=== PATIENT | female | born 1975 | race Caucasian/White ===

== ENCOUNTER 2017-06-01 09:05 | Emergency (ER) | payer OTHER ==
[2017-06-01 09:15] VITALS: TEMP 98.2; BMI 29.7
--- NOTE | 2017-06-01 09:21 | PDOC ---
History of Present Illness - General Chief Complaint: Headache Stated Complaint: HEADACHE, VOMITNG Time Seen by Provider: 06/01/17 09:21 History Source: Patient - History of Present Illness Initial Comments: 06/01/17 10:12 CC: 5 day h/o headache Patient is a 42 y.o. female with a PMH of Asthma and Hypothyroidism who presents to our facility c/o 5 day h/o "throbbing, constant" headache which some associated photophobia as well as h/o lathmaker/awakening (non-bloody, yellowish) vomiting. Patient states that she was watching television when the headache came on gradually and increased in severity over the last 5 days prompting her visit to the ED. Patient notes intermittent sensation of vertigo that is non-positional and not associated with chest pain or shortness of breath. Patient notes she has been tolerating oral intake, however has had a decreased appetite due to her pain. PMD: Dr. Mc Surgical: None Social: denies, nicotine, social 1-2 alcoholic drinks weekly, denies recreational drugs NKDA Past History - Past Medical History Allergies/Adverse Reactions: Allergies Allergy/AdvReac Type Severity Reaction Status Date / Time No Known Allergies Allergy Verified 06/01/17 09:14 Home Medications: Ambulatory Orders Levothyroxine [Synthroid -] 250 mcg PO ASDIR 05/06/13 Asthma: Yes Cancer: No Cardiac Disorders: No Diabetes: No HTN: No Seizures: No Thyroid Disease: Yes (hypothyroidism) - Surgical History Abdominal Surgery: Yes (HERNIA.) Appendectomy: Yes - Immunization History Immunization Up to Date: Yes - Suicide/Smoking/Psychosocial Hx Smoking Status: No Smoking History: Never smoked Have you smoked in the past 12 months: No Number of Cigarettes Smoked Daily: 1 If you are a former smoker, when did you quit?: 2008 Hx Alcohol Use: Yes (SOCIAL.) Drug/Substance Use Hx: No Substance Use Type: Alcohol Hx Substance Use Treatment: No Review of Systems - Review of Systems Constitutional: No: Chills, Fever HEENTM: Yes: Other (Photophobia) Respiratory: No: Cough, Shortness of Breath Cardiac (ROS): No: Chest Pain ABD/GI: No: Constipated, Diarrhea : No: Burning, Dysuria Neurological: Yes: Headache, Dizziness Psychiatric: No: Anxiety, Depression All Other Systems: Reviewed and Negative *Physical Exam - Vital Signs Last Vital Signs Temp Pulse Resp BP Pulse Ox 98.2 F 88 18 145/93 98 06/01/17 09:13 06/01/17 09:13 06/01/17 09:13 06/01/17 09:13 06/01/17 09:13 - Physical Exam General Appearance: Yes: Nourished, Appropriately Dressed HEENT: positive: EOMI, SUSANA Neck: positive: Trachea midline, Supple Respiratory/Chest: positive: Lungs Clear, Normal Breath Sounds Cardiovascular: positive: Regular Rhythm, Regular Rate, S1, S2 Gastrointestinal/Abdominal: positive: Normal Bowel Sounds, Soft Integumentary: positive: Normal Color, Dry, Warm Neurologic: positive: automatic pinsetter mechanic II-XII NML intact, Fully Oriented, Alert, Finger to Nose, Other (Non-analtalgic gait) ED Treatment Course - LABORATORY CBC & Chemistry Diagram: 06/01/17 10:41 06/01/17 10:41 Medical Decision Making - Medical Decision Making 06/01/17 13:33 Patient is a 42 y.o. female who presents with 5 day h/o headache. Initial DDx is for migraine vs. intracranial mass vs. pituitary adenoma (less likely). PLAN: 1. CT Scan 2. 1 L IV NS 3. CBC, CMP 06/01/17 19:58 CT head negative for acute intracranial process. Patient symptomatically improved with Compazine --> Decadron. Ambulatory, improved and tolerating PO intake. Discharged home with neurology referral. *DC/Admit/Observation/Transfer Diagnosis at time of Disposition: Headache - Discharge Dispostion Disposition: HOME Condition at time of disposition: Good Admit: No - Referrals Referrals: Richi Renner MD [Primary Care Provider] - Lyle Thompson MD [Staff Physician] - - Patient Instructions Additional Instructions: Please make an appointment with Dr. Thompson, neurology, for evaluation of your headaches. Please return to the ED should your symptoms worsen.
--- NOTE | 2017-06-01 09:25 | PDOC ---
Attending Attestation - HPI HPI: 06/01/17 10:38 42yr old female, with significant past medical history of asthma and hypothyroidism, who presents to the emergency room today complaining of 5 days of a progressively worsening, throbbing and tightening headache. She explains that she was watching TV when the headache started 5 days ago. She took tylenol and motrin with mild relief. She has not noticed any exacerbating or alleviating factors, but endorses photophobia. She reports intermittent episodes of dizziness, where she feels like the room is spinning. She notes that she has been experiencing nausea and 2-3 episodes of vomiting in the morning. The vomit is nonbloody, nonbilious, and usually just the food she ate that morning. Denies visual changes Denies recent illness. Denies fever, chills, nausea, vomiting. - Physicial Exam PE: 06/01/17 10:38 Constitutional: Awake, alert, oriented. Appears uncomfortable. Head: Normocephalic. Atraumatic Eyes: PERRL. EOMI. Conjunctivae are not pale. ENT: Mucous membranes are moist and intact. Posterior pharynx without exudates or erythema. Uvula midline. Neck: Supple. Full ROM. No lymphadenopathy. Cardiovascular: + tachycardic. Regular rhythm. S1, S2 regular. Distal pulses are 2+ and symmetric. Pulmonary/Chest: No evidence of respiratory distress. Clear to auscultation bilaterally No wheezing, rales or rhonchi. Abdominal: Soft and non-distended. There is no tenderness. No rebound, guarding or rigidity. No organomegaly. No palpable masses. Good bowel sounds. Back: No CVA tenderness. Musculoskeletal: No edema. No cyanosis. No clubbing. Full range of motion in all extremities. Nocalf tenderness. Radial/pedal pulses are intact and 2+ bilaterally Skin: Skin is warm and dry. No petechiae. No purpura. Neurological: Alert and oriented to person, place, and time. Cranial nerves II -XII are grossly intact. Normal speech. Strength is grossly symmetric. No sensory deficits. Psychiatric: Good eye contact. Normal interaction, affect and behavior. <Holley Vitale - Last Filed: 06/01/17 10:38> - Resident Resident Name: Nicole Munoz - ED Attending Attestation I have performed the following: I have examined & evaluated the patient, The case was reviewed & discussed with the resident, I agree w/resident's findings & plan, Exceptions are as noted - Medical Decision Making 06/01/17 09:24 I, Dr. Carolina Gotti, DO, attest that this document has been prepared under my direction and personally reviewed by me in its entirety. I further attest, that it accurately reflects all work, treatment, procedures and medical decision -making performed by me. 06/01/17 10:33 a/p: 42yo female with tension headache -no meningeal signs, no infectious process -no f/c -neck supple -neuro intact -will check head ct given new onset of headaches, not thunderclap, had gradual onset, low suspicion for SAH -labs given 5 days of n/v -ua -ucg -ivf hydration, headache and nausea control -reassess 06/01/17 11:[address] negative 06/01/17 11:28 pt feeling better, BRYANT not 100% resolved. Will add toradol. Pt resting comfortably. No dizziness. No nausea. 06/01/17 13:00 pt denies dysuria. no bryant. stable for d/c to home. recommend neuro follow up <Carolina Gotti - Last Filed: 06/01/17 13:00>
[2017-06-01] MEDS ORDERED: METOCLOPRAMIDE HCL 10 MG TABLET (FP) PO ONE (09:43)
[2017-06-01] MEDS ORDERED: SODIUM CHLORIDE 0.9% 1000 ML INFUS.BAG IV ONE (09:45)
[2017-06-01] MEDS ORDERED: PROCHLORPERAZINE INJECTION 10 MG/2 ML VIAL IVPB ONE (09:52)
[2017-06-01] MEDS ORDERED: KETOROLAC TROMETHAMINE 30 MG/1 ML VIAL IVPUSH ONE ×2 (09:53→11:29)
[2017-06-01] MEDS ORDERED: DEXAMETHASONE SOD PHOSPHATE 10 MG/1 ML VIAL IVPUSH ONE (09:58)
[2017-06-01] MEDS ORDERED: DEXAMETHASONE SOD PHOSPHATE 10 MG/1 ML VIAL ONE (10:06)
[2017-06-01] MEDS ORDERED: METOCLOPRAMIDE HCL INJECTION 10 MG/2 ML VIAL IVPUSH ONE (10:07)
[2017-06-01] MEDS ORDERED: ACETAMINOPHEN 325 MG TABLET (FP) PO ONE (10:08)
[2017-06-01] MEDS ORDERED: MAG HYDROX/AL HYDROX/SIMETH 30 ML UNIT-DOSE CUP PO ONE (10:08)
[2017-06-01] MEDS ORDERED: MAG HYDROX/AL HYDROX/SIMETH 30 ML UNIT-DOSE CUP ONE (10:36)
[2017-06-01] MEDS ORDERED: ACETAMINOPHEN 325 MG TABLET (FP) ONE (10:36)
[2017-06-01 11:20] LABS: URINE APPEARANCE CLOUDY; URINE BILIRUBIN NEGATIVE (NEGATIVE); URINE BLOOD NEGATIVE (NEGATIVE); URINE COLOR DKYELLOW; URINE GLUCOSE (UA) NEGATIVE (NEGATIVE); URINE KETONE 1+ (NEGATIVE); URINE NITRITE NEGATIVE (NEGATIVE); URINE UROBILINOGEN NEGATIVE mg/dL (0.2-1.0)
[2017-06-01 11:23] LABS: BASOPHIL 0.3 % (0-2.0); EOSINOPHIL 0.4 % (0-4.5); MCH 31.8 pg (25.7-33.7); MCHC 33.4 g/dl (32.0-36.0); MEAN CELL VOLUME 95.1 fl (80-96); NEUTROPHILS 64.2 % (42.8-82.8); PLATELET COUNT 238 K/MM3 (134-434); RDW 13.8 % (11.6-15.6); WHITE BLOOD COUNT 5.6 K/mm3 (4.0-10.0)
[2017-06-01] MEDS ORDERED: KETOROLAC TROMETHAMINE 30 MG/1 ML VIAL ONE (11:31)
[2017-06-01 11:32] LABS: URINE PROTEIN 1+ (NEGATIVE)
[2017-06-01 11:34] LABS: URINE BACTERIA FEW /hpf (NONE SEEN); URINE MUCUS MANY; URINE RBC 2 /hpf (0-3); URINE WBC 10 /hpf (3-5)
[2017-06-01 11:38] LABS: ALBUMIN 3.3 g/dl (3.4-5.0); ALK PHOS 58 U/L (45-117); ANION GAP 7 (8-16); BILIRUBIN,TOTAL 0.3 mg/dL (0.2-1.0); CALCIUM 8.7 mg/dL (8.5-10.1); CO2 25 mmol/L (21-32); CREATININE 0.8 mg/dL (0.55-1.02); GLUCOSE,RANDOM 81 mg/dL (74-106); MAGNESIUM 2.5 mg/dL (1.8-2.4); SGOT/AST 11 U/L (15-37); SGPT/ALT 16 U/L (12-78); TOT PROT 6.7 g/dl (6.4-8.2)
[2017-06-01] MEDS ORDERED: oxyCODONE HCL 5 MG TABLET ONE (13:12)
[2017-06-01 13:13] VITALS: BP 108/74; PULSE 64
[2017-06-01 13:25] LABS: URINE LEUK ESTERASE Negative (NEGATIVE)
== END 2017-06-01 13:18 | disposition home or self-care (01) ==
LOC: JER 09:05 → SUPCPDRO 09:05 → JER 13:18
PROC: 3E0337Z Introduction of Electrolytic and Water Balance Substance into Peripheral Vein, Percutaneous Approach (ICD-10-PCS; principal; 2017-06-01)
PROC: 3E033GC Introduction of Other Therapeutic Substance into Peripheral Vein, Percutaneous Approach (ICD-10-PCS; 2017-06-01)
PROC: 3E033NZ Introduction of Analgesics, Hypnotics, Sedatives into Peripheral Vein, Percutaneous Approach (ICD-10-PCS; 2017-06-01)
DX: R51 Headache (principal); J45.909 Unspecified asthma, uncomplicated; E03.9 Hypothyroidism, unspecified; Z87.891 Personal history of nicotine dependence
CPT/HCPCS: 36415; 70450-TC; 80053; 81003; 81015; 83735; 84703; 85025; 96374; 96375; 99284-25

== ENCOUNTER 2017-09-03 17:43 | Emergency (ER) | payer BC, OTHER ==
[2017-09-03 18:12] VITALS: BP 109/71; PULSE 61; TEMP 98.4; BMI 28.3
--- NOTE | 2017-09-03 20:14 | PDOC ---
History of Present Illness - History of Present Illness Initial Comments: 09/03/17 20:57 Patient is a 42 y.o. female with a PMH of Asthma and Hypothyroidism who presents to our facility c/o heavy vaginal bleeding since 08/10/17. Patient states that her menses on 07/16/17 was normal however on 08/10/17 her period began and never stopped she says. She states she has been having heavy clots of blood and tissue and went through 8 pads today. She states she has been taking Motrin for the pain. She denies nausea, vomiting, diarrhea, constipation, headache, dizziness. She denies chest pain, shortness of breath. She denies dysuria, frequency, urgency, hematuria. PMD: Dr. Mc ObGyn: Dr. Roldan Surgical:Appendectomy, Umbilical hernia removal. Social: denies, nicotine, social 1-2 alcoholic drinks weekly, denies recreational drugs NKDA <Yanni Nunez - Last Filed: 09/03/17 21:07> <Latonia Brandon - Last Filed: 09/03/17 22:13> - General Chief Complaint: Vaginal Bleeding Stated Complaint: VAGINAL BLEEDING Time Seen by Provider: 09/03/17 19:56 Past History <Yanni Nunez - Last Filed: 09/03/17 21:07> - Past Medical History Asthma: Yes Cancer: No Cardiac Disorders: No Diabetes: No HTN: No Seizures: No Thyroid Disease: Yes (hypothyroidism) - Surgical History Abdominal Surgery: Yes (HERNIA.) Appendectomy: Yes - Immunization History Immunization Up to Date: Yes - Suicide/Smoking/Psychosocial Hx Smoking Status: No Smoking History: Current some day smoker Have you smoked in the past 12 months: Yes Number of Cigarettes Smoked Daily: 1 If you are a former smoker, when did you quit?: 2008 Information on smoking cessation initiated: No Hx Alcohol Use: Yes (SOCIAL.) Drug/Substance Use Hx: No Substance Use Type: Alcohol Hx Substance Use Treatment: No <Latonia Brandon - Last Filed: 09/03/17 22:13> - Past Medical History Allergies/Adverse Reactions: Allergies Allergy/AdvReac Type Severity Reaction Status Date / Time No Known Allergies Allergy Verified 09/03/17 18:09 Home Medications: Ambulatory Orders RX: Levothyroxine [Synthroid -] 250 mcg PO ASDIR 05/06/13 Review of Systems - Review of Systems Comments:: 09/03/17 20:57 ADULT COMPREHENSIVE ROS CONSTITUTIONAL: Absent: fever, chills, diaphoresis, generalized weakness, malaise, loss of appetite HEENT: Absent: rhinorrhea, nasal congestion, throat pain, throat swelling, difficulty swallowing, mouth swelling, ear pain, eye pain, visual Changes CARDIOVASCULAR: Absent: chest pain, syncope, palpitations, irregular heart rate, lightheadedness , peripheral edema RESPIRATORY: Absent: cough, shortness of breath, dyspnea with exertion, orthopnea, wheezing, stridor, hemoptysis GASTROINTESTINAL: Present: LLQ abdominal pain Absent: abdominal distension, nausea, vomiting, diarrhea, constipation, melena , hematochezia GENITOURINARY: Absent: dysuria, frequency, urgency, hesitancy, hematuria, flank pain, genital pain GYNECOLOGICAL: Present: heavy vaginal blood clots w/ tissue. MUSCULOSKELETAL: Absent: myalgia, arthralgia, joint swelling SKIN: Absent: rash, itching, pallor HEMATOLOGIC/IMMUNOLOGIC: Absent: easy bleeding, easy bruising, lymphadenopathy, frequent infections ENDOCRINE: Absent: unexplained weight gain, unexplained weight loss, heat intolerance, cold intolerance NEUROLOGIC: Absent: headache, focal weakness or paresthesias, dizziness, unsteady gait, seizure, mental status changes, bladder or bowel incontinence PSYCHIATRIC: Absent: anxiety, depression, suicidal or homicidal ideation, hallucinations. <Yanni Nunze - Last Filed: 09/03/17 21:07> *Physical Exam - Vital Signs Last Vital Signs Temp Pulse Resp BP Pulse Ox 98.4 F 61 19 109/71 100 09/03/17 18:09 09/03/17 18:09 09/03/17 18:09 09/03/17 18:09 09/03/17 18:09 - Physical Exam Comments: 09/03/17 21:00 GENERAL: Well developed, well nourished. Awake and alert. No acute distress. HEENT: Normocephalic, atraumatic. PERRLA, EOMI. No conjunctival pallor. Sclera are non- icteric. Moist mucous membranes. Oropharynx is clear. NECK: Supple. Full ROM. No JVD. Carotid pulses 2+ and symmetric, without bruits. No thyromegaly. No lymphadenopathy. CARDIOVASCULAR: Regular rate and rhythm. No murmurs, rubs, or gallops. Distal pulses are 2+ and symmetric. PULMONARY: No evidence of respiratory distress. Lungs clear to auscultation bilaterally. No wheezing, rales or rhonchi. ABDOMINAL: Soft, in discomfort. Non-tender. Non-distended. No rebound or guarding. No organomegaly. Normoactive bowel sounds. MUSCULOSKELETAL Normal range of motion at all joints. No bony deformities or tenderness. No CVA tenderness. EXTREMITIES: No cyanosis. No clubbing. No edema. No calf tenderness. SKIN: Warm and dry. Normal capillary refill. No rashes. No jaundice. NEUROLOGICAL: Alert, awake, appropriate. Cranial nerves 2-12 intact. No deficits to light touch and temperature in face, upper extremities and lower extremities. No motor deficits in the in face, upper extremities and lower extremities. Normoreflexic in the upper and lower extremities. Normal speech. Toes are down-going bilaterally. Gait is normal without ataxia. PSYCHIATRIC: Cooperative. Good eye contact. Appropriate mood and affect. <Yanni Nunez - Last Filed: 09/03/17 21:07> - Vital Signs Last Vital Signs Temp Pulse Resp BP Pulse Ox 98.4 F 61 19 109/71 100 09/03/17 18:09 09/03/17 18:09 09/03/17 18:09 09/03/17 18:09 09/03/17 18:09 <Latonia Brandon - Last Filed: 09/03/17 22:13> ED Treatment Course - LABORATORY CBC & Chemistry Diagram: 09/03/17 20:20 - ADDITIONAL ORDERS Additional order review: 09/03/17 20:20 RBC 3.60 MCV 95.0 MCHC 33.4 RDW 14.3 MPV 8.4 Neutrophils % 50.7 D Lymphocytes % 37.9 D Monocytes % 10.3 H Eosinophils % 0.6 Basophils % 0.5 <Yanni Nunez - Last Filed: 09/03/17 21:07> - LABORATORY CBC & Chemistry Diagram: 09/03/17 20:20 <Latonia Brandon - Last Filed: 09/03/17 22:13> *DC/Admit/Observation/Transfer - Attestations Scribe Attestion: 09/03/17 21:07 Documentation prepared by Yanni Nunez, acting as medical surgical tech for Latonia Brandon MD. <Yanni Nunez - Last Filed: 09/03/17 21:07> <Latonia Brandon - Last Filed: 09/03/17 22:13> Diagnosis at time of Disposition: Menorrhagia Qualifiers: Menorrahagia type: with regular cycle Qualified Code(s): N92.0 - Excessive and frequent menstruation with regular cycle - Discharge Dispostion Disposition: HOME Condition at time of disposition: Stable - Referrals Referrals: Richi Renner MD [Primary Care Provider] - Artem Roldan MD [Staff Physician] - - Patient Instructions Printed Discharge Instructions: DI for Vaginal Bleeding, DI for Menorrhagia Additional Instructions: please followup with your operations inspector take motrin for pain - Post Discharge Activity
[2017-09-03 20:27] LABS: BASO % 0.5 % (0-2.0); EOS % 0.6 % (0-4.5); HEMATOCRIT 34.2 % (32.4-45.2); HEMOGLOBIN 11.4 GM/dL (10.7-15.3); LYMPH % 37.9 % (8-40); MCH 31.8 pg (25.7-33.7); MCHC 33.4 g/dl (32.0-36.0); MEAN PLT VOLUME 8.4 fl (7.5-11.1); MONO % 10.3 % (3.8-10.2); NEUT % 50.7 % (42.8-82.8); PLATELET COUNT 341 K/MM3 (134-434); RDW 14.3 % (11.6-15.6); WHITE BLOOD COUNT 6.3 K/mm3 (4.0-10.0)
[2017-09-03 20:57] LABS: INR 0.94 (0.82-1.09); PROTHROMBIN TIME (PATIENT) 10.6 SEC (9.98-11.88)
[2017-09-03 21:02] LABS: URINE APPEARANCE SLCLOUDY; URINE BILIRUBIN NEGATIVE (NEGATIVE); URINE BLOOD 3+ (NEGATIVE); URINE COLOR YELLOW; URINE GLUCOSE (UA) NEGATIVE (NEGATIVE); URINE KETONE NEGATIVE (NEGATIVE); URINE LEUK ESTERASE NEGATIVE (NEGATIVE); URINE NITRITE NEGATIVE (NEGATIVE); URINE PROTEIN NEGATIVE (NEGATIVE); URINE UROBILINOGEN NEGATIVE mg/dL (0.2-1.0)
[2017-09-03 21:30] LABS: EPI CELLS RARE /HPF (FEW); URINE MUCUS RARE
[2017-09-03] MEDS ORDERED: IBUPROFEN 400 MG TABLET (FP) PO ONE ×2 (22:19→22:21)
== END 2017-09-04 01:50 | disposition home or self-care (01) ==
LOC: JER 17:43
DX: N92.0 Excessive and frequent menstruation with regular cycle (principal); E03.9 Hypothyroidism, unspecified; J45.909 Unspecified asthma, uncomplicated; F17.210 Nicotine dependence, cigarettes, uncomplicated
CPT/HCPCS: 36415; 81003; 81015; 84703; 85025; 85610; 99282-25